=== PATIENT | female | born 1950 | race Caucasian/White ===

== ENCOUNTER 2017-03-13 09:36 | Emergency (ER) | payer OTHER | END 2017-03-13 12:06 | disposition home or self-care (01) | LOC: FER 09:36 | DX: S46.911A Strain of unspecified muscle, fascia and tendon at shoulder and upper arm level, right arm, initial encounter (principal); M47.812 Spondylosis without myelopathy or radiculopathy, cervical region; M47.816 Spondylosis without myelopathy or radiculopathy, lumbar region; Z87.19 Personal history of other diseases of the digestive system; Z88.5 Allergy status to narcotic agent; Z91.041 Radiographic dye allergy status; Z98.890 Other specified postprocedural states | CPT/HCPCS: 72050; 73030; 73502; 99283; J1100; J1885 ==